=== PATIENT | female | born 1980 | race Caucasian/White ===

== ENCOUNTER 2022-12-31 19:14 | Emergency (ER) | payer BC ==
[2022-12-31] MEDS ORDERED: Albuterol/Ipratropium 3.0-0.5 MG/3 ML Neb Soln NEB ONE (19:47)
[2022-12-31 20:28] LABS: ESTIMATED GFR 65 mL/min (>60)
[2022-12-31] MEDS ORDERED: Doxycycline 100 MG Tab PO ONE (20:59)
[2022-12-31] MEDS ORDERED: predniSONE 20 MG Tab PO ONE (20:59)
== END 2022-12-31 21:26 | disposition home or self-care (01) ==
LOC: FB.ED 19:14
DX: J44.1 Chronic obstructive pulmonary disease with (acute) exacerbation (principal); Z79.899 Other long term (current) drug therapy; Z72.0 Tobacco use
CPT/HCPCS: 36415; 71045; 80053; 83735; 84484; 85025; 85379; 93005; 94640; 99285; A9270; J7512; J7620